=== PATIENT | male | born 1995 ===

== ENCOUNTER 2018-10-16 14:33 | Outpatient (CLI) | payer OTHER ==
[~2018-10-16] VITALS: Ht 167.6 cm; Wt 63.5 kg
== END 2018-10-16 14:45 | disposition home or self-care (01) ==
LOC: OFIC 805 14:33
DX: H61.23 Impacted cerumen, bilateral (principal); H91.8X3 Other specified hearing loss, bilateral

== ENCOUNTER 2018-11-01 08:58 | Outpatient (CLI) | payer OTHER ==
[~2018-11-01] VITALS: Ht 152.4 cm; Wt 63.5 kg
== END 2018-11-01 09:15 | disposition home or self-care (01) ==
LOC: OFIC 805 08:58
DX: H90.3 Sensorineural hearing loss, bilateral (principal); H61.23 Impacted cerumen, bilateral

== ENCOUNTER 2019-03-03 11:26 | Outpatient (CLI) | payer OTHER ==
[~2019-03-03] VITALS: Ht 152.4 cm; Wt 63.5 kg
== END 2019-03-03 11:40 | disposition home or self-care (01) ==
LOC: OFIC 805 11:26
DX: H61.23 Impacted cerumen, bilateral (principal); H91.8X3 Other specified hearing loss, bilateral

== ENCOUNTER → 2019-05-04 11:34 | Outpatient (CLI) | payer OTHER | END | disposition home or self-care (01) | LOC: LAB 11:34 | DX: J11.89 Influenza due to unidentified influenza virus with other manifestations (principal); J06.9 Acute upper respiratory infection, unspecified ==